=== PATIENT | female | born 1990 | race Caucasian/White ===

== ENCOUNTER 2016-08-08 06:36 | Emergency (ER) | payer OTHER ==
[2016-08-08 07:43] LABS: HEMOGLOBIN 12.4 gm/dl (12.3-15.3); RED BLOOD COUNT 4.63 M/UL (4.00-5.10)
[2016-08-08 07:58] LABS: BUN/CREATININE RATIO 14 (0-10)
== END 2016-08-08 11:10 | disposition home or self-care (01) ==
LOC: ER1 06:36
PROVIDERS: Physician Assistant
DX: N13.2 Hydronephrosis with renal and ureteral calculous obstruction (principal); N39.0 Urinary tract infection, site not specified; Z90.49 Acquired absence of other specified parts of digestive tract; Z88.0 Allergy status to penicillin; Z88.1 Allergy status to other antibiotic agents
CPT/HCPCS: 36415; 80053; 81001; 83690; 84703; 85025; 96365; 96375; 99284; J1885; J1956; J2270; J2405; J2550

== ENCOUNTER → 2020-08-04 | Outpatient (CLI) | payer OTHER ==
[~2020-08-04] MED LIST: ANTIVERT 25MG T25 MG PO; ZOFRAN ODT 4 MG4 MG PO
== END ==
LOC: EXRD 15:32
DX: N20.0 Calculus of kidney (principal)
CPT/HCPCS: 74018

== ENCOUNTER → 2020-08-25 | Outpatient (CLI) | payer OTHER | LOC: CT 15:13 | DX: R31.29 Other microscopic hematuria (principal); R10.9 Unspecified abdominal pain; N39.0 Urinary tract infection, site not specified | CPT/HCPCS: Q9967 ==

== ENCOUNTER → 2020-12-03 | Outpatient (CLI) | payer OTHER | LOC: EXRD 15:10 | DX: M79.671 Pain in right foot (principal) | CPT/HCPCS: 73630 ==

== ENCOUNTER → 2021-10-29 | Outpatient (CLI) | payer OTHER ==
[~2021-10-29] MED LIST changes: +ABILIFY5 MG PO; +AMLODIPINE-BEN1 EAC3 PO; +ATENOLOL25 MG PO; +BISOPROLOL FUMA10 MG PO; +CATAPRES-TTS 31 EACH TP; +CITALOPRAM HBR40 MG PO; +CYANOCOBAL1000 MCG/1 INJ; +CYCLOBENZAPRINE10 MG PO; +DITROPAN 5 MG TA5 MG PO; +DULERA 200 MCG8.8 GM INH; +FLONASE ALLER15.8 ML; +FLOVENT HFA10.6 GM INH; +FOLIC ACID 1 MG1 MG PO; +HYDRALAZINE HC100 MG PO; +HYDROCHLOROTHIA25 MG PO; +MACRODANTIN100 MG PO; +METHOTREXATE T2.5 MG PO; +MUCUS RELIEF600 MG PO; +MYCOSTATIN100000 UTS PO; +NUVARING VAGIN1 EACH VG; +PLAQUENIL 200200 MG PO; +PROAIR HFA8.5 GM INH; +SPIRONOLACTONE50 MG PO; +VICTOZA 1818 MG/3 ML SQ; +VITAMIN D21250 MCG PO
[2021-10-29 13:32] LABS: HEMOGLOBIN 11.6 gm/dl (12.3-15.3); RED BLOOD COUNT 4.09 M/UL (4.00-5.10); WHITE BLOOD COUNT 5.6 K/UL (4.5-11.0)
[2021-10-29 13:51] LABS: BUN/CREATININE RATIO 8 (0-10)
== END ==
LOC: OPSV2 12:30
PROVIDERS: Anesthesiology
DX: Z01.818 Encounter for other preprocedural examination (principal); S83.207A Unspecified tear of unspecified meniscus, current injury, left knee, initial encounter; I10 Essential (primary) hypertension; E11.9 Type 2 diabetes mellitus without complications; D64.9 Anemia, unspecified
CPT/HCPCS: 36415; 80048; 85027; 93005

== ENCOUNTER → 2021-11-20 | Day surgery (SDC) | payer OTHER ==
[~2021-11-20] VITALS: Ht 170.2 cm; Wt 103.0 kg
== END | disposition home or self-care (01) ==
LOC: OR 11-06 17:45
DX: S83.282A Other tear of lateral meniscus, current injury, left knee, initial encounter (principal); I10 Essential (primary) hypertension; E11.9 Type 2 diabetes mellitus without complications; J45.909 Unspecified asthma, uncomplicated; M06.9 Rheumatoid arthritis, unspecified; E66.9 Obesity, unspecified; F32.A Depression, unspecified; F41.9 Anxiety disorder, unspecified; Z68.35 Body mass index [BMI] 35.0-35.9, adult; Z88.0 Allergy status to penicillin; Z88.1 Allergy status to other antibiotic agents; Z88.2 Allergy status to sulfonamides; Z88.6 Allergy status to analgesic agent; Z91.013 Allergy to seafood; Z91.012 Allergy to eggs; Z91.018 Allergy to other foods; Z91.040 Latex allergy status; Z79.84 Long term (current) use of oral hypoglycemic drugs; Z79.899 Other long term (current) drug therapy
CPT/HCPCS: 82962; 84703; J0171; J1100; J2001; J2250; J2405; J2704; J3010; J7040

== ENCOUNTER → 2022-02-26 | Outpatient (CLI) | payer OTHER | LOC: KOH-I 15:44 | DX: S83.242A Other tear of medial meniscus, current injury, left knee, initial encounter (principal); M25.462 Effusion, left knee; M94.8X6 Other specified disorders of cartilage, lower leg; X58.XXXA Exposure to other specified factors, initial encounter | CPT/HCPCS: 73721 ==